=== PATIENT | female | born 1980 | race Caucasian/White ===

== ENCOUNTER 2016-12-05 15:12 | Emergency (ER) | payer BC, MEDICAID ==
[2016-12-05] MEDS ORDERED: SODIUM CHLORIDE 0.9% 1,000 ML IV STA (16:03)
--- NOTE | 2016-12-05 16:08 | ED ---
Syncope HPI - General Chief Complaint: Dizziness Stated Complaint: Near Syncope Time Seen by Provider: 12/05/16 15:56 Source: patient, RN notes reviewed, old records reviewed Mode of arrival: EMS - History of Present Illness Initial Comments: This is a 36-year-old female presenting to the emergency department with a near syncopal episode at work today. Patient reports that she is certainly feels somewhat lightheaded and walk towards the bathroom. Patient reports a coworker helped her and she will try to/100 face. Patient states that that time slipped to the floor. Patient states that she did not hit her head. Patient reports that she does have some right flank pain. Patient reports that she attributed her syncope to either low blood sugar or dehydration. Patient reports that she drinks a lot of coffee. She denies any difficulty urinating, hematuria, changes in bowel movements. She denies any abdominal pain. Patient reports that she had no shortness of breath, chest pain or diaphoresis during the episode. Patient reports she has a history of IBS and she tries to eat healthy. Surgical history includes tubal ligation. - Related Data Home Medications Medication Instructions Recorded Confirmed Methylphenidate HCl [Concerta] 18 mg PO DAILY 12/05/16 12/05/16 Allergies Allergy/AdvReac Type Severity Reaction Status Date / Time aspirin Allergy Anaphylaxis Verified 12/05/16 15:55 Review of Systems ROS Statement: Those systems with pertinent positive or pertinent negative responses have been documented in the HPI. ROS Other: All systems not noted in ROS Statement are negative. Past Medical History Past Medical History: No Reported History History of Any Multi-Drug Resistant Organisms: None Reported Past Surgical History: Breast Surgery, Tubal Ligation Additional Past Surgical History / Comment(s): Breast reduction 2002 Past Psychological History: No Psychological Hx Reported Smoking Status: Never smoker Past Alcohol Use History: None Reported Past Drug Use History: None Reported General Exam - General Exam Comments Initial Comments: Pleasant 36-year-old female. No acute distress. General appearance: alert, in no apparent distress Head exam: Present: atraumatic, normocephalic, normal inspection Eye exam: Present: normal appearance, PERRL, EOMI. Absent: scleral icterus, conjunctival injection, periorbital swelling ENT exam: Present: normal exam, mucous membranes moist Neck exam: Present: normal inspection. Absent: tenderness, meningismus, lymphadenopathy Respiratory exam: Present: normal lung sounds bilaterally. Absent: respiratory distress, wheezes, rales, rhonchi, stridor Cardiovascular Exam: Present: regular rate, normal rhythm, normal heart sounds. Absent: systolic murmur, diastolic murmur, rubs, gallop, clicks GI/Abdominal exam: Present: soft, normal bowel sounds. Absent: distended, tenderness, guarding, rebound, rigid Extremities exam: Present: normal inspection, full ROM, normal capillary refill. Absent: tenderness, pedal edema, joint swelling, calf tenderness Back exam: Present: normal inspection Neurological exam: Present: alert, oriented X3, CN II-XII intact Psychiatric exam: Present: normal affect, normal mood Skin exam: Present: warm, dry, intact, normal color. Absent: rash Course Vital Signs 12/05/16 12/05/16 12/05/16 15:15 16:37 17:15 Temperature 97.9 F 97.7 F 97.6 F Pulse Rate 92 77 73 Respiratory 20 18 18 Rate Blood Pressure 130/80 99/57 101/52 O2 Sat by Pulse 100 100 100 Oximetry Medical Decision Making - Medical Decision Making This is a 36-year-old female presenting to the emergency department with a near syncopal episode at work today. Patient reports that she is certainly feels somewhat lightheaded and walk towards the bathroom. Patient reports a coworker helped her and she will try to/100 face. Patient states that that time slipped to the floor. Patient states that she did not hit her head. Patient reports that she does have some right flank pain. Patient reports that she attributed her syncope to either low blood sugar or dehydration. Patient reports that she drinks a lot of coffee. She denies any difficulty urinating, hematuria, changes in bowel movements. She denies any abdominal pain. Patient reports that she had no shortness of breath, chest pain or diaphoresis during the episode. Patient reports she has a history of IBS and she tries to eat healthy. Surgical history includes tubal ligation. Patient's lab work was reviewed and negative for any significant acute process. EKG was reviewed and negative for any abnormalities. Chest x-ray was also normal KUB is normal. Urinalysis shows no signs of infection. Patient reports that she does feel much better after being hydrated. Patient has been advised to follow-up with her primary care provider. Patient understands treatment plan will comply. Return parameters were discussed. - Lab Data Result diagrams: 12/05/16 15:20 12/05/16 15:20 Lab Results 12/05/16 12/05/16 12/05/16 Range/Units 15:20 15:20 15:20 WBC 7.2 (3.8-10.6) k/uL RBC 4.35 (3.80-5.40) m/uL Hgb 13.4 (11.4-16.0) gm/dL Hct 39.0 (34.0-46.0) % MCV 89.7 (80.0-100.0) fL MCH 30.8 (25.0-35.0) pg MCHC 34.4 (31.0-37.0) g/dL RDW 13.1 (11.5-15.5) % Plt Count 302 (150-450) k/uL Neutrophils % 66 % Lymphocytes % 25 % Monocytes % 6 % Eosinophils % 1 % Basophils % 1 % Neutrophils # 4.7 (1.3-7.7) k/uL Lymphocytes # 1.8 (1.0-4.8) k/uL Monocytes # 0.4 (0-1.0) k/uL Eosinophils # 0.1 (0-0.7) k/uL Basophils # 0.0 (0-0.2) k/uL PT (9.0-12.0) sec INR (<1.1) APTT (22.0-30.0) sec D-Dimer (<0.60) mg/L FEU Sodium 141 (137-145) mmol/L Potassium 4.7 (3.5-5.1) mmol/L Chloride 106 (98-107) mmol/L Carbon Dioxide 24 (22-30) mmol/L Anion Gap 11 mmol/L BUN 12 (7-17) mg/dL Creatinine 0.87 (0.52-1.04) mg/dL Est GFR (MDRD) Af Amer >60 (>60 ml/min/1.73 sqM) Est GFR (MDRD) Non-Af >60 (>60 ml/min/1.73 sqM) Glucose 85 (74-99) mg/dL POC Glucose (mg/dL) (75-99) mg/dL POC Glu Band Ripsaw Operator ID Calcium 10.1 (8.4-10.2) mg/dL Magnesium 2.2 (1.6-2.3) mg/dL Total Bilirubin 0.6 (0.2-1.3) mg/dL AST 18 (14-36) U/L ALT 21 (9-52) U/L Alkaline Phosphatase 49 (38-126) U/L Total Creatine Kinase 111 (30-135) U/L CK-MB (CK-2) 0.8 (0.0-2.4) ng/mL CK-MB (CK-2) Rel Index 0.7 Troponin I <0.012 (0.000-0.034) ng/mL Total Protein 8.1 (6.3-8.2) g/dL Albumin 4.8 (3.5-5.0) g/dL Urine Color Urine Appearance (Clear) Urine pH (5.0-8.0) Ur Specific [place] (1.001-1.035) Urine Protein (Negative) Urine Glucose (UA) (Negative) Urine Ketones (Negative) Urine Blood (Negative) Urine Nitrite (Negative) Urine Bilirubin (Negative) Urine Urobilinogen (<2.0) mg/dL Ur Leukocyte Esterase (Negative) Urine HCG, Qual (Not Detectd) 12/05/16 12/05/16 12/05/16 Range/Units 15:20 15:20 15:20 WBC (3.8-10.6) k/uL RBC (3.80-5.40) m/uL Hgb (11.4-16.0) gm/dL Hct (34.0-46.0) % MCV (80.0-100.0) fL MCH (25.0-35.0) pg MCHC (31.0-37.0) g/dL RDW (11.5-15.5) % Plt Count (150-450) k/uL Neutrophils % % Lymphocytes % % Monocytes % % Eosinophils % % Basophils % % Neutrophils # (1.3-7.7) k/uL Lymphocytes # (1.0-4.8) k/uL Monocytes # (0-1.0) k/uL Eosinophils # (0-0.7) k/uL Basophils # (0-0.2) k/uL PT 10.2 (9.0-12.0) sec INR 1.0 (<1.1) APTT 24.9 (22.0-30.0) sec D-Dimer 0.33 (<0.60) mg/L FEU Sodium (137-145) mmol/L Potassium (3.5-5.1) mmol/L Chloride (98-107) mmol/L Carbon Dioxide (22-30) mmol/L Anion Gap mmol/L BUN (7-17) mg/dL Creatinine (0.52-1.04) mg/dL Est GFR (MDRD) Af Amer (>60 ml/min/1.73 sqM) Est GFR (MDRD) Non-Af (>60 ml/min/1.73 sqM) Glucose (74-99) mg/dL POC Glucose (mg/dL) (75-99) mg/dL POC Glu Band Ripsaw Operator ID Calcium (8.4-10.2) mg/dL Magnesium (1.6-2.3) mg/dL Total Bilirubin (0.2-1.3) mg/dL AST (14-36) U/L ALT (9-52) U/L Alkaline Phosphatase (38-126) U/L Total Creatine Kinase (30-135) U/L CK-MB (CK-2) (0.0-2.4) ng/mL CK-MB (CK-2) Rel Index Troponin I (0.000-0.034) ng/mL Total Protein (6.3-8.2) g/dL Albumin (3.5-5.0) g/dL Urine Color Colorless Urine Appearance Clear (Clear) Urine pH 7.0 (5.0-8.0) Ur Specific [place] 1.002 (1.001-1.035) Urine Protein Negative (Negative) Urine Glucose (UA) Negative (Negative) Urine Ketones Negative (Negative) Urine Blood Negative (Negative) Urine Nitrite Negative (Negative) Urine Bilirubin Negative (Negative) Urine Urobilinogen <2.0 (<2.0) mg/dL Ur Leukocyte Esterase Negative (Negative) Urine HCG, Qual Not Detected (Not Detectd) 12/05/16 Range/Units 16:41 WBC (3.8-10.6) k/uL RBC (3.80-5.40) m/uL Hgb (11.4-16.0) gm/dL Hct (34.0-46.0) % MCV (80.0-100.0) fL MCH (25.0-35.0) pg MCHC (31.0-37.0) g/dL RDW (11.5-15.5) % Plt Count (150-450) k/uL Neutrophils % % Lymphocytes % % Monocytes % % Eosinophils % % Basophils % % Neutrophils # (1.3-7.7) k/uL Lymphocytes # (1.0-4.8) k/uL Monocytes # (0-1.0) k/uL Eosinophils # (0-0.7) k/uL Basophils # (0-0.2) k/uL PT (9.0-12.0) sec INR (<1.1) APTT (22.0-30.0) sec D-Dimer (<0.60) mg/L FEU Sodium (137-145) mmol/L Potassium (3.5-5.1) mmol/L Chloride (98-107) mmol/L Carbon Dioxide (22-30) mmol/L Anion Gap mmol/L BUN (7-17) mg/dL Creatinine (0.52-1.04) mg/dL Est GFR (MDRD) Af Amer (>60 ml/min/1.73 sqM) Est GFR (MDRD) Non-Af (>60 ml/min/1.73 sqM) Glucose (74-99) mg/dL POC Glucose (mg/dL) 90 (75-99) mg/dL POC Glu Band Ripsaw Operator ID Chas Mcnulty Calcium (8.4-10.2) mg/dL Magnesium (1.6-2.3) mg/dL Total Bilirubin (0.2-1.3) mg/dL AST (14-36) U/L ALT (9-52) U/L Alkaline Phosphatase (38-126) U/L Total Creatine Kinase (30-135) U/L CK-MB (CK-2) (0.0-2.4) ng/mL CK-MB (CK-2) Rel Index Troponin I (0.000-0.034) ng/mL Total Protein (6.3-8.2) g/dL Albumin (3.5-5.0) g/dL Urine Color Urine Appearance (Clear) Urine pH (5.0-8.0) Ur Specific [place] (1.001-1.035) Urine Protein (Negative) Urine Glucose (UA) (Negative) Urine Ketones (Negative) Urine Blood (Negative) Urine Nitrite (Negative) Urine Bilirubin (Negative) Urine Urobilinogen (<2.0) mg/dL Ur Leukocyte Esterase (Negative) Urine HCG, Qual (Not Detectd) 12/05/16 16:23 EKG shows normal sinus rhythm, ventricular rate of 74 bpm. [place] interval 144 ms, QR anabaptism 74 ms, QT QTC is 372/412 ms. Normal axis deviation. No evidence of ST elevation or T-wave inversion. No evidence of atrial or ventricular arrhythmias. - Radiology Data Radiology results: report reviewed Chest x-ray shows no acute cardiopulmonary process. From objective bowel gas pattern. Metallic linear density [place] building ornament still present overlying the upper sacrum however some minimal position. No visceromegaly, pneumoperitoneum, abnormal constipation present. Disposition Clinical Impression: Near syncope Disposition: HOME SELF-CARE Condition: Good Instructions: Dizziness (ED) Additional Instructions: Advised to rest, increase fluids. Follow-up with your primary care provider within the next 1-2 days. Return to emergency department if any alarming signs or symptoms occur. Referrals: Mello Yoon MD [Primary Care Provider] - 1-2 days Time of Disposition: 17:18
[2016-12-05 16:22] LABS: Appearance,Urine Clear (Clear); Bilirubin,Urine Negative (Negative); Glucose,Urine (UA) Negative (Negative); Ketones,Urine Negative (Negative); Leukocyte Esterase,Urine Negative (Negative); Nitrite,Urine Negative (Negative); Protein,Urine Negative (Negative); Specific Gravity,Urine 1.002 (1.001-1.035); UA Billing (MACRO vs. MICRO) CHEM; Urobilinogen,Urine <2.0 mg/dL (<2.0)
[2016-12-05 16:24] LABS: Basophils % (A) 1 %; CH 30.7; CHCM 34.4; Eosinophils # (A) 0.1 k/uL (0-0.7); Eosinophils % (A) 1 %; HDW 2.36; HGB 13.4 gm/dL (11.4-16.0); Luc # (Auto) 0.13; Luc % (Auto) 2; Lymphocytes # (A) 1.8 k/uL (1.0-4.8); Lymphocytes % (A) 25 %; MCH 30.8 pg (25.0-35.0); MCHC 34.4 g/dL (31.0-37.0); MCV 89.7 fL (80.0-100.0); Mean Platelet Volume 8.5; Monocytes # (A) 0.4 k/uL (0-1.0); Monocytes % (A) 6 %; Neutrophils # (A) 4.7 k/uL (1.3-7.7); Neutrophils % (A) 66 %; RBC 4.35 m/uL (3.80-5.40); RDW 13.1 % (11.5-15.5); WBC 7.2 k/uL (3.8-10.6); WBC (Perox) 6.97
[2016-12-05 16:33] LABS: ALT 21 U/L (9-52); AST 18 U/L (14-36); Alkaline Phosphatase 49 U/L (38-126); Anion Gap 11 mmol/L; Blood Urea Nitrogen 12 mg/dL (7-17); Calcium 10.1 mg/dL (8.4-10.2); Carbon Dioxide 24 mmol/L (22-30); Chloride 106 mmol/L (98-107); Glucose 85 mg/dL (74-99); Magnesium 2.2 mg/dL (1.6-2.3); Non-African American GFR(MDRD) >60 (>60 ml/min/1.73 sqM); Potassium 4.7 mmol/L (3.5-5.1); Sodium 141 mmol/L (137-145); Total Bilirubin 0.6 mg/dL (0.2-1.3); Total Protein 8.1 g/dL (6.3-8.2)
[2016-12-05 16:37] LABS: Partial Thromboplastin Time 24.9 sec (22.0-30.0); Prothrombin Time 10.2 sec (9.0-12.0)
[2016-12-05 16:40] VITALS: RESP 18
[2016-12-05 16:40] LABS: Creatine Kinase 111 U/L (30-135)
[2016-12-05 16:44] LABS: Glucose,Whole Blood 90 mg/dL (75-99)
[2016-12-05 16:53] LABS: Creatine Kinase MB 0.8 ng/mL (0.0-2.4); Troponin I <0.012 ng/mL (0.000-0.034)
--- NOTE | 2016-12-05 16:53 | XR ---
EXAMINATION TYPE: XR chest 2V DATE OF EXAM: 12/05/2016 COMPARISON: NONE HISTORY: Syncope today. TECHNIQUE: Frontal and lateral views of the chest are obtained. FINDINGS: There is no focal air space opacity, pleural effusion, or pneumothorax seen. The cardiac silhouette size is within normal limits. The osseous structures are intact. IMPRESSION: No acute cardiopulmonary process.
--- NOTE | 2016-12-05 16:54 | XR ---
EXAMINATION TYPE: XR KUB DATE OF EXAM: 12/05/2016 4:50 PM CLINICAL HISTORY: Syncope today. TECHNIQUE: 2 upright KUB images of the abdomen are obtained. COMPARISON: None. FINDINGS: Scattered gas is seen in non-distended stomach and small bowel loops. Gas and fecal materia l is seen in non-distended colon. Metallic linear density favors umbilical ornament is felt present o verlying upper sacrum, somewhat low in position however. Correlate clinically. There is no visceromeg jacky, pneumoperitoneum, or abnormal calcification appreciated. The lung bases are clear and the osseou s structures are intact. IMPRESSION: Overall nonobstructive bowel gas pattern.
[2016-12-05 17:25] VITALS: BP 101/52; PULSE 73; TEMP 97.6
== END 2016-12-05 17:30 | disposition home or self-care (01) ==
LOC: EC 15:12
DX: R55 Syncope and collapse (principal); R10.9 Unspecified abdominal pain; Z79.899 Other long term (current) drug therapy; Z88.6 Allergy status to analgesic agent
CPT/HCPCS: 36415; 71020; 74000; 80053; 81003; 81025; 82550; 82553; 83735; 84484; 85025; 85379; 85610; 85730; 93005; 96360; 99285

== ENCOUNTER → 2017-01-01 | Outpatient (CLI) | payer MEDICAID ==
--- NOTE | 2017-01-01 16:51 | XR ---
Left ankle HISTORY: Pain, trauma weeks ago 2 views of the left ankle No comparisons There is soft tissue swelling present. Alignment, joint spaces are maintained. Bone mineralization is normal. IMPRESSION: Soft tissue swelling.
== END | disposition home or self-care (01) ==
LOC: RADXRMAIN 16:16
PROVIDERS: ATTEND Internal Medicine
DX: M79.89 Other specified soft tissue disorders (principal); R52 Pain, unspecified

== ENCOUNTER 2017-03-31 23:19 | Emergency (ER) | payer MEDICAID ==
--- NOTE | 2017-03-31 23:50 | ED ---
Chest Pain HPI - General Chief Complaint: Chest Pain Stated Complaint: Syncope/Palpitations Time Seen by Provider: 03/31/17 23:41 Source: patient Mode of arrival: wheelchair Limitations: no limitations - History of Present Illness Initial Comments: This patient is a 37-year-old woman who presents to be evaluate for substernal chest tightness that came on this evening. The patient states that it is mild, constant, and that she has not noted worsening or relieving factors. She denies associated symptoms. MD Complaint: chest pain -: hour(s) Onset: during rest Pain Location: substernal Severity: mild Quality: heaviness Consistency: constant Improves With: nothing Worsens With: nothing Other Symptoms: cough Treatments Prior to Arrival: none - Related Data Home Medications Medication Instructions Recorded Confirmed Phentermine HCl [Adipex-P] 18.75 mg PO QAM 03/31/17 03/31/17 Allergies Allergy/AdvReac Type Severity Reaction Status Date / Time aspirin Allergy Anaphylaxis Verified 03/31/17 23:44 Review of Systems ROS Statement: Those systems with pertinent positive or pertinent negative responses have been documented in the HPI. ROS Other: All systems not noted in ROS Statement are negative. EKG Findings - EKG Results: EKG: interpreted by SCOTT ROYAL, sinus rhythm (Rate 94 bpm), normal axis, normal QRS, normal ST/T, no acute changes - MO, Pacemaker, Normal: Normal tracing: normal tracing Past Medical History Past Medical History: No Reported History Additional Past Medical History / Comment(s): syncope. IBS. History of Any Multi-Drug Resistant Organisms: None Reported Past Surgical History: Breast Surgery, Tubal Ligation Additional Past Surgical History / Comment(s): Breast reduction 2002 Past Psychological History: No Psychological Hx Reported Smoking Status: Never smoker Past Alcohol Use History: None Reported Past Drug Use History: None Reported General Exam Limitations: no limitations Course Vital Signs 03/31/17 04/01/17 04/01/17 23:25 00:14 00:26 Temperature 98 F Pulse Rate 94 88 Pulse Rate [ 84 Sitting Pulse Oximetery] Pulse Rate [ 99 Standing Pulse Oximetery] Pulse Rate [ 84 Supine Pulse Oximetery] Respiratory 16 18 Rate Blood Pressure 104/66 102/56 Blood Pressure 102/61 [Left Arm Sitting] Blood Pressure 107/59 [Left Arm Standing] Blood Pressure 113/64 [Left Arm Supine] O2 Sat by Pulse 100 100 Oximetry 04/01/17 04/01/17 00:56 01:35 Temperature 98.3 F Pulse Rate 77 85 Pulse Rate [ Sitting Pulse Oximetery] Pulse Rate [ Standing Pulse Oximetery] Pulse Rate [ Supine Pulse Oximetery] Respiratory 18 18 Rate Blood Pressure 100/55 98/66 Blood Pressure [Left Arm Sitting] Blood Pressure [Left Arm Standing] Blood Pressure [Left Arm Supine] O2 Sat by Pulse 100 100 Oximetry Disposition Clinical Impression: Palpitations Disposition: HOME SELF-CARE Condition: Good Instructions: Palpitations (ED) Referrals: Mello Yoon MD [Primary Care Provider] - 1-2 days
[2017-03-31] MEDS ORDERED: SODIUM CHLORIDE 0.9% 500 ML IV STA (23:59)
--- NOTE | 2017-04-01 00:25 | XR ---
EXAMINATION TYPE: XR chest 2V DATE OF EXAM: 04/01/2017 COMPARISON: 12/05/2016 HISTORY: Chest pain TECHNIQUE: Frontal and lateral views of the chest are obtained. FINDINGS: Heart and mediastinum are normal. Lungs are clear. Diaphragm is normal. Bony thorax is nor mal. There are chest leads. IMPRESSION: Normal chest. No change.
[2017-04-01 00:29] LABS: ALT 27 U/L (9-52); AST 24 U/L (14-36); Alkaline Phosphatase 63 U/L (38-126); Anion Gap 12 mmol/L; Blood Urea Nitrogen 12 mg/dL (7-17); Calcium 9.9 mg/dL (8.4-10.2); Carbon Dioxide 21 mmol/L (22-30); Chloride 107 mmol/L (98-107); Glucose 80 mg/dL (74-99); Magnesium 2.3 mg/dL (1.6-2.3); Non-African American GFR(MDRD) >60 (>60 ml/min/1.73 sqM); Potassium 5.1 mmol/L (3.5-5.1); Sodium 140 mmol/L (137-145); Total Bilirubin 0.4 mg/dL (0.2-1.3); Total Protein 8.3 g/dL (6.3-8.2)
[2017-04-01 00:40] LABS: Basophils # (A) 0.1 k/uL (0-0.2); Basophils % (A) 1 %; CH 30.7; CHCM 33.7; Eosinophils # (A) 0.1 k/uL (0-0.7); Eosinophils % (A) 1 %; HCT 42.3 % (34.0-46.0); HDW 2.58; HGB 13.9 gm/dL (11.4-16.0); Luc # (Auto) 0.12; Luc % (Auto) 1; Lymphocytes # (A) 1.7 k/uL (1.0-4.8); Lymphocytes % (A) 21 %; MCH 30.1 pg (25.0-35.0); MCHC 32.9 g/dL (31.0-37.0); MCV 91.4 fL (80.0-100.0); Mean Platelet Volume 7.9; Monocytes # (A) 0.6 k/uL (0-1.0); Monocytes % (A) 7 %; Neutrophils # (A) 5.7 k/uL (1.3-7.7); Neutrophils % (A) 69 %; RBC 4.62 m/uL (3.80-5.40); RDW 12.2 % (11.5-15.5); WBC 8.2 k/uL (3.8-10.6); WBC (Perox) 8.37
[2017-04-01 00:50] LABS: Creatine Kinase 71 U/L (30-135)
[2017-04-01 01:04] LABS: Creatine Kinase MB 0.5 ng/mL (0.0-2.4); Troponin I <0.012 ng/mL (0.000-0.034)
[2017-04-01 01:15] VITALS: RESP 18
[2017-04-01 01:36] VITALS: BP 98/66; PULSE 85; TEMP 98.3
== END 2017-04-01 01:36 | disposition home or self-care (01) ==
LOC: EC 23:19
DX: R00.2 Palpitations (principal); R07.89 Other chest pain; R05 Cough; Z95.0 Presence of cardiac pacemaker; Z88.6 Allergy status to analgesic agent; Z79.899 Other long term (current) drug therapy
CPT/HCPCS: 36415; 71020; 80053; 82550; 82553; 83735; 84484; 85025; 85379; 93005; 96360; 99285

== ENCOUNTER → 2018-01-09 | Outpatient (CLI) | payer MEDICAID ==
[2018-01-09 14:16] LABS: HCT 39.4 % (34.0-46.0); HGB 13.3 gm/dL (11.4-16.0); MCH 30.4 pg (25.0-35.0); MCHC 33.7 g/dL (31.0-37.0); MCV 90.1 fL (80.0-100.0); Mean Platelet Volume 7.8; Platelet Count 313 k/uL (150-450); RBC 4.38 m/uL (3.80-5.40); RDW 12.7 % (11.5-15.5); WBC 6.4 k/uL (3.8-10.6)
[2018-01-09 14:29] LABS: Anion Gap 9 mmol/L; Blood Urea Nitrogen 11 mg/dL (7-17); Calcium 9.7 mg/dL (8.4-10.2); Carbon Dioxide 26 mmol/L (22-30); Chloride 106 mmol/L (98-107); Glucose 107 mg/dL (74-99); Potassium 4.3 mmol/L (3.5-5.1); Sodium 141 mmol/L (137-145)
== END | disposition home or self-care (01) ==
LOC: LABWHC1 13:54
PROVIDERS: ATTEND Internal Medicine
DX: M62.838 Other muscle spasm (principal)
CPT/HCPCS: 36415; 80048; 85027

== ENCOUNTER → 2018-09-03 | Outpatient (CLI) | payer MEDICAID ==
--- NOTE | 2018-09-03 11:51 | MM ---
Reason for exam: clinical finding. Last mammogram was performed 3 years and 6 months ago. History: Reductions of both breasts, 2001. Physical Findings: Nurse did not find any significant physical abnormalities on exam. MG Diagnostic Mammo w CAD SHANTE Bilateral CC and MLO view(s) were taken. Prior study comparison: March 03, 2015, bilateral MG screening mammo w CAD. August 11, 2007, CAD bilateral diagnostic mammogram. The breast tissue is heterogeneously dense. This may lower the sensitivity of mammography. There is no discrete abnormality. These results were verbally communicated with the patient and result sheet given to the patient on 09/03/18. ASSESSMENT: Incomplete: need additional imaging evaluation, BI-RAD 0 RECOMMENDATION: Ultrasound of the left breast. (palpable by doctor)
--- NOTE | 2018-09-03 11:52 | USB ---
Reason for exam: clinical finding. History: Reductions of both breasts, 2001. US Breast LT Left complete breast ultrasound includes all four quadrants, the retroareolar region and axilla. Finding demonstrates no cystic or solid lesion seen. These results were verbally communicated with the patient and result sheet given to the patient on 09/03/18. ASSESSMENT: Negative, BI-RAD 1 RECOMMENDATION: Routine screening mammogram of both breasts at age 40. Manage patient on a clinical basis.
== END ==
LOC: RADMAMWWP 09:42
PROVIDERS: ATTEND Obstetrics & Gynecology
DX: N63.20 Unspecified lump in the left breast, unspecified quadrant (principal); R92.8 Other abnormal and inconclusive findings on diagnostic imaging of breast
CPT/HCPCS: 77066

== ENCOUNTER → 2020-05-09 | Outpatient (CLI) | payer MEDICAID ==
[2020-05-09 11:12] LABS: Basophils # (A) 0.1 k/uL (0-0.2); Basophils % (A) 1 %; Eosinophils # (A) 0.1 k/uL (0-0.7); Eosinophils % (A) 2 %; HCT 41.2 % (34.0-46.0); HGB 13.9 gm/dL (11.4-16.0); Lymphocytes % (A) 29 %; MCH 30.8 pg (25.0-35.0); MCHC 33.6 g/dL (31.0-37.0); MCV 91.5 fL (80.0-100.0); Mean Platelet Volume 8.3; Monocytes # (A) 0.4 k/uL (0-1.0); Monocytes % (A) 6 %; Neutrophils # (A) 4.3 k/uL (1.3-7.7); Neutrophils % (A) 61 %; Platelet Count 281 k/uL (150-450); RDW 12.1 % (11.5-15.5)
== END | disposition home or self-care (01) ==
LOC: LABPAT 09:20
PROVIDERS: ATTEND Obstetrics & Gynecology
DX: Z01.818 Encounter for other preprocedural examination (principal)
CPT/HCPCS: 36415; 85025

== ENCOUNTER 2020-05-19 06:17 | Day surgery (SDC) | payer MEDICAID ==
[2020-05-15 12:04] VITALS: BMI 20.2
--- NOTE | 2020-05-17 13:16 | P.HPOB ---
History of Present Illness H&P Date: 05/17/20 Chief Complaint: DANA I This is a 40 y.o. female, 2, para 2, who presents for LEEP with colposcopy due to DANA I. She has been treated for DANA 3 in the past and wishes to proceed the stated procedure. She has previously been treated with cold knife conization in 2004. Her last colposcopy was performed on 04/26/2020 due to normal pap with +high risk HPV. Biopsies did show low grade squamous intraepithelial lesion including endocervical curettage. OB Hx: . History of 2 vaginal deliveries. Tint Layer Hx: Hx HPV Social Hx: . 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 Review of Systems Constitutional: Denies chills, Denies fever Eyes: denies blurred vision, denies pain Ears, nose, mouth and throat: Denies headache, Denies sore throat Respiratory: Denies cough Gastrointestinal: Denies abdominal pain, Denies diarrhea, Denies nausea, Denies vomiting Genitourinary: Denies dysuria, Denies hematuria Menstruation: Reports menses variable Musculoskeletal: Reports low back pain, Denies myalgias Integumentary: Denies pruritus, Denies rash Neurological: Denies numbness, Denies weakness Psychiatric: Reports anxiety, Reports depression Past Medical History Additional Past Medical History / Comment(s): syncope.,IBS. History of Any Multi-Drug Resistant Organisms: None Reported Past Surgical History: Breast Surgery, Tubal Ligation Additional Past Surgical History / Comment(s): Breast reduction 2001, colonoscopy, [facility] biopsy. Past Anesthesia/Blood Transfusion Reactions: No Reported Reaction Past Psychological History: Anxiety, Depression Smoking Status: Never smoker Past Alcohol Use History: Occasional Past Drug Use History: None Reported - Past Family History Mother Family Medical History: Cancer Additional Family Medical History / Comment(s): Stage 4 cervical cancer. Medications and Allergies Home Medications Medication Instructions Recorded Confirmed Type Phentermine HCl [Adipex-P] 18.75 mg PO QAM 03/31/17 05/15/20 History Multivitamins, Thera [Multivitamin 1 tab PO DAILY 05/15/20 05/15/20 History (formulary)] Allergies Allergy/AdvReac Type Severity Reaction Status Date / Time aspirin Allergy Anaphylaxis Verified 05/19/20 06:38 Exam Osteopathic Statement: *. No significant issues noted on an osteopathic structural exam other than those noted in the History and Physical/Consult. HEENT: within normal limits Heart: regular rate and rhythm Lungs: clear to auscultation bilaterally Abdomen: soft, non-tender Pelvic: uterus retroverted, non-tender, no adnexal masses or tenderness Extremities: neg. Yue's Assessment and Plan (1) DANA I (cervical intraepithelial neoplasia I) Current Visit: No Status: Acute Code(s): N87.0 - MILD CERVICAL DYSPLASIA SNOMED Code(s): 587035491 Plan: Proceed with loop electrocautery excision procedure with colposcopy. I have discussed the risks, benefits, and alternative therapies for the above- mentioned procedure and for both sedation/anesthesia as well as necessary blood products administration, if indicated, as they pertain to this patient. The patient has indicated her understanding and acceptance of the risks and procedures discussed.
[~2020-05-19 06:17] MED LIST: DEXAMETHASONE SOD PHOSPHATE 4 MG/ML 1 ML VIAL IV ONE; HYDROmorphone 0.5 MG/0.5 ML SYRINGE IVP PRN; LACTATED RINGERS 1,000 ML IV SCH; LIDOCAINE 1% (10MG/ML) FOR IV START INTRADERMA PRN; MIDAZOLAM 2 MG/2 ML VIAL IV PRN; ONDANSETRON 4 MG/2 ML VIAL IVP ONE; Pre Op ABX Message 1 EACH MISC MISCELLANE ONE
[2020-05-19] MEDS ORDERED: SCOPOLAMINE 1.5MG/72HR PATCH TRANSDERM ONE (07:00)
[2020-05-19] MEDS ORDERED: fentaNYL (PF) 50 MCG/ML 2 ML AMP ONE (07:27)
[2020-05-19] MEDS ORDERED: PROPOFOL 10 MG/ML 20 ML VIAL IV ONE (07:27)
[2020-05-19] MEDS ORDERED: LIDOCAINE 1% INJ 10MG/ML (20 ML MDV) ONE (07:27)
[2020-05-19] MEDS ORDERED: MIDAZOLAM 2 MG/2 ML VIAL ONE (07:27)
[2020-05-19] MEDS ORDERED: LIDOCAINE 1%-EPI 1:100,000 20 ML VIAL SUBMUCOSAL ONE ×2 (07:42→07:45)
[2020-05-19] MEDS ORDERED: BUPIVACAINE (PF) 0.5% 30 ML VIAL MISCELLANE ONE ×2 (07:43→07:45)
[2020-05-19] MEDS ORDERED: FERRIC SUBSULFATE (MONSELS) JAR TOPICAL ONE ×2 (07:46→07:52)
[2020-05-19] MEDS ORDERED: IODINE/POTASS IOD (LUGOLS) BOTTLE TOPICAL ONE (07:46)
[2020-05-19] MEDS ORDERED: ACETIC ACID 15 DROPS/ML DROPS MISCELLANE ONE (07:46)
--- NOTE | 2020-05-19 07:58 | P.OP ---
Date of Procedure: 05/19/20 Preoperative Diagnosis: DANA-1 Postoperative Diagnosis: Cervical dysplasia Procedure(s) Performed: Colposcopy with loop electrocautery excision procedure Anesthesia: HERMELINDAA Surgeon: Vivian Tineo Estimated Blood Loss (ml): 10 Pathology: other (Ectocervix with 12 o'clock position marked with a stitch and a separate piece is endocervix) Condition: stable Disposition: same day Indications for Procedure: This is a 40 y.o. female, 2, para 2, who presents for LEEP with colposco py due to DANA I. She has been treated for DANA 3 in the past and wishes to proceed the stated procedure. She has previously been treated with cold knife conization in 2004. Her last colposcopy was performed on 04/26/2020 due to normal pap with +high risk HPV. Biopsies did show low grade squamous intraepithelial lesion including endocervical curettage. Operative Findings: No visible abnormalities are seen with either acetic acid or Lugol solution. Cervix is nulliparous appearing. Description of Procedure: The patient is taken to the operating room where she is placed in the dorsal lithotomy position. She is prepped and the normal sterile fashion. Bladder is drained with a catheter. A coated bivalve speculum is placed in the patient's vagina. Cervix is visualized with the colposcope. Cervix is swabbed with 5% acetic acid. No abnormalities are visualized. Next the cervix is swabbed with Lugol solution. Again no abnormalities are visualized. Next the cervix was circumferentially injected with a 50-50 mixture of 1% lidocaine with epinephrine and half percent Marcaine. Approximately 5 mL were used. Next a large loop was used with 35+ of cutting power to swipe from left to right and moving the entire transition zone. Next a small loop was used to remove the endocervix. Ball- tipped cautery was used to cauterize the bed left behind. Monsel solution is applied for hemostasis. Speculum is removed from the vagina. A stitches placed at the 12 o'clock position on the ectocervix. No stitches placed on the endocervical piece. Specimens are sent to pathology. Excellent hemostasis is noted. All sponge and needle counts are correct. All instruments are correct.
[2020-05-19 08:14] VITALS: TEMP 97.3
[2020-05-19] MEDS ORDERED: KETOROLAC 15 MG/ML 1 ML VIAL IVP ONE (08:25)
[2020-05-19 08:49] VITALS: RESP 16
[2020-05-19 09:09] VITALS: BP 102/66; PULSE 67
== END 2020-05-19 09:16 | disposition home or self-care (01) ==
LOC: OR 06:17
PROVIDERS: ATTEND Obstetrics & Gynecology
DX: N87.0 Mild cervical dysplasia (principal); K58.9 Irritable bowel syndrome, unspecified; F41.9 Anxiety disorder, unspecified; F32.9 Major depressive disorder, single episode, unspecified; Z88.6 Allergy status to analgesic agent; Z98.51 Tubal ligation status; Z98.890 Other specified postprocedural states; Z79.899 Other long term (current) drug therapy; Z80.49 Family history of malignant neoplasm of other genital organs; Z86.001 Personal history of in-situ neoplasm of cervix uteri
CPT/HCPCS: 81025; 88307; 57460; J2250; J1100; J2405; J2001; J3010; J1885; J2704

== ENCOUNTER → 2020-11-07 | Outpatient (CLI) | payer MEDICAID ==
--- NOTE | 2020-11-07 12:27 | MM ---
Reason for exam: screening (asymptomatic). Last mammogram was performed 2 years and 2 months ago. History: Reductions of both breasts, 2002. Physical Findings: A clinical breast exam by your physician is recommended on an annual basis and results should be correlated with mammographic findings. MG 3D Screening Mammo W/Cad Bilateral CC and MLO view(s) were taken. XCCL view(s) were taken of the left breast. Prior study comparison: September 03, 2018, bilateral MG diagnostic mammo w CAD SHANTE. March 03, 2015, bilateral MG screening mammo w CAD. There is no discrete abnormality. ASSESSMENT: Negative, BI-RAD 1 RECOMMENDATION: Routine screening mammogram of both breasts in 1 year.
== END | disposition home or self-care (01) ==
LOC: RADMAMWWP 09:25
PROVIDERS: ATTEND Obstetrics & Gynecology
DX: Z12.31 Encounter for screening mammogram for malignant neoplasm of breast (principal)
CPT/HCPCS: 77063; 77067

== ENCOUNTER 2021-02-21 00:22 | Emergency (ER) | payer MEDICAID ==
[2021-02-21 00:27] VITALS: RESP 18; TEMP 98.1
[2021-02-21] MEDS ORDERED: FLUORESCEIN STRIPS 1 MG STRIP RIGHT EYE ONE (00:29)
[2021-02-21] MEDS ORDERED: PROPARACAINE 0.5% OPHTH DROPS 15 ML BTL RIGHT EYE STA (00:29)
[2021-02-21] MEDS ORDERED: TOBRAMYCIN 0.3% OPHTH DROPS 5 ML BTL RIGHT EYE STA (00:50)
--- NOTE | 2021-02-21 00:52 | ED ---
Eye Problem HPI - General Chief complaint: Eye Problems Stated complaint: Eye Problems Time Seen by Provider: 02/21/21 00:28 Source: patient, RN notes reviewed Mode of arrival: ambulatory Limitations: no limitations - History of Present Illness Initial comments: This a 40-year-old female presents emergency Department chief complaint right eye foreign body. Patient states she had a sharp like something was in her eyes she attempted to flush multiple times still feels irritated feels like there something in her right eye she is up-to-date on her tetanus no blurred vision no contacts states that she does wear glasses no other complaints. - Related Data Home Medications Medication Instructions Recorded Confirmed Phentermine HCl [Adipex-P] 18.75 mg PO QAM 03/31/17 05/15/20 Multivitamins, Thera [Multivitamin 1 tab PO DAILY 05/15/20 05/15/20 (formulary)] Allergies Allergy/AdvReac Type Severity Reaction Status Date / Time aspirin Allergy Anaphylaxis Verified 02/21/21 00:26 Review of Systems ROS Statement: Those systems with pertinent positive or pertinent negative responses have been documented in the HPI. ROS Other: All systems not noted in ROS Statement are negative. Past Medical History Past Medical History: No Reported History Additional Past Medical History / Comment(s): syncope.,IBS. History of Any Multi-Drug Resistant Organisms: None Reported Past Surgical History: Breast Surgery, Tubal Ligation Additional Past Surgical History / Comment(s): Breast reduction 2001, colonoscopy, Cone biopsy. Past Anesthesia/Blood Transfusion Reactions: No Reported Reaction Past Psychological History: Anxiety, Depression Smoking Status: Never smoker Past Alcohol Use History: Occasional Past Drug Use History: None Reported - Past Family History Mother Family Medical History: Cancer Additional Family Medical History / Comment(s): Stage 4 cervical cancer. General Exam Limitations: no limitations General appearance: alert, in no apparent distress Head exam: Present: atraumatic, normocephalic, normal inspection Eye exam: Present: normal appearance, PERRL, EOMI, conjunctival injection (Mild right), other (Patient complete relief of symptoms with proparacaine eye drops, fluorescein uptake with with lymph node in the 7 o'clock position no foreign body evident). Absent: scleral icterus, periorbital swelling ENT exam: Present: normal exam, mucous membranes moist Neck exam: Present: normal inspection. Absent: tenderness, meningismus, lymphadenopathy Respiratory exam: Present: normal lung sounds bilaterally. Absent: respiratory distress, wheezes, rales, rhonchi, stridor Cardiovascular Exam: Present: regular rate, normal rhythm, normal heart sounds. Absent: systolic murmur, diastolic murmur, rubs, gallop, clicks Course Vital Signs 02/21/21 00:24 Temperature 98.1 F Pulse Rate 83 Respiratory 18 Rate Blood Pressure 105/74 O2 Sat by Pulse 100 Oximetry Medical Decision Making - Medical Decision Making Patient is a small corneal abrasion will be started on Tobrex eyedrops tetanus is up-to-date. Patient will follow-up with ophthalmology if no relief return parameters discussed. Disposition Clinical Impression: Corneal abrasion, right Disposition: HOME SELF-CARE Condition: Stable Instructions (If sedation given, give patient instructions): Corneal Abrasion (ED) Additional Instructions: Please return to the Emergency Department if symptoms worsen or any other concerns. Use Tobrex eyedrops 1 drop every 4 hours while awake for the next 5 days. Is patient prescribed a controlled substance at d/c from ED?: No Referrals: Mello Yoon MD [Primary Care Provider] - 1-2 days Baron Orellana MD [STAFF PHYSICIAN] - 1-2 days Time of Disposition: 00:51
[2021-02-21 01:30] VITALS: BP 97/72; PULSE 74
== END 2021-02-21 01:28 | disposition home or self-care (01) ==
LOC: EC 00:22
DX: S05.01XA Injury of conjunctiva and corneal abrasion without foreign body, right eye, initial encounter (principal); F41.9 Anxiety disorder, unspecified; F32.9 Major depressive disorder, single episode, unspecified; Z88.5 Allergy status to narcotic agent; Z98.51 Tubal ligation status; X58.XXXA Exposure to other specified factors, initial encounter
CPT/HCPCS: 99283

== ENCOUNTER → 2021-07-17 | Outpatient (CLI) | payer MEDICAID ==
[2021-07-17 23:58] LABS: Basophils # (A) 0.07 X 10*3/uL (0.00-0.10); Eosinophils # (A) 0.12 X 10*3/uL (0.04-0.35); Eosinophils % (A) 1.7 %; HCT 38.4 % (37.2-46.3); HGB 12.4 g/dL (12.0-15.0); MCH 30.2 pg (27.0-32.0); MCHC 32.3 g/dL (32.0-37.0); MCV 93.7 fL (80.0-97.0); Mean Platelet Volume 11.5 fL (9.5-12.2); Monocytes # (A) 0.48 X 10*3/uL (0.20-1.00); Monocytes % (A) 6.7 %; Neutrophils # (A) 4.73 X 10*3/uL (1.80-7.70); Neutrophils % (A) 65.5 %; Platelet Count 347 X 10*3/uL (140-440); RDW 12.6 % (11.5-14.5); WBC 7.21 X 10*3/uL (4.50-10.00)
[2021-07-18 01:41] LABS: ALT 14 U/L (8-44); AST 15 U/L (13-35); African American GFR (CKD) 106.1 (60.0-200.0); Albumin 4.5 g/dL (3.8-4.9); Alkaline Phosphatase 50 U/L (41-126); BUN/Creat Ratio 13.63 Ratio (12.00-20.00); Blood Urea Nitrogen 10.9 mg/dL (9.0-27.0); Calcium 9.2 mg/dL (8.7-10.3); Carbon Dioxide 23.9 mmol/L (20.0-27.5); Chloride 105 mmol/L (96-109); Globulin 2.5 g/dL (1.6-3.3); Glucose 92 mg/dL (70-110); Non-African American GFR(CKD) 91.6 (60.0-200.0); Potassium 4.2 mmol/L (3.5-5.5); Sodium 141 mmol/L (135-145); Total Bilirubin <0.20 mg/dL (0.30-1.20)
[2021-07-18 03:50] LABS: Iron 84 ug/dL (50-170)
== END | disposition home or self-care (01) ==
LOC: LABWHC1 15:06
PROVIDERS: ATTEND Internal Medicine
DX: R53.82 Chronic fatigue, unspecified (principal)
CPT/HCPCS: 36415; 80053; 82607; 83540; 84439; 84443; 85025

== ENCOUNTER → 2021-08-10 | Outpatient (CLI) | payer MEDICAID ==
--- NOTE | 2021-08-10 14:40 | US ---
EXAMINATION TYPE: US pelvic complete DATE OF EXAM: 08/10/2021 COMPARISON: NONE CLINICAL HISTORY: R10.2 PELVIC PAIN. pelvic pain TECHNIQUE: Transabdominal (TA). Date of LMP: 07/15/21 EXAM MEASUREMENTS: Uterus: 7.3 x 4.6 x 6.1 cm Endometrial Stripe: 1.4 cm Right Ovary: 3.1 x 1.7 x 2.8 cm Left Ovary: 2.9 x 1.5 x 1.7 cm 1. Uterus: Retroverted 2. Endometrium: small amount of fluid within 3. Right Ovary: complex area = 1.9 x 1.5 x 1.6cm 4. Left Ovary: wnl 5. Bilateral Adnexa: wnl 6. Posterior cul-de-sac: small amount of free fluid IMPRESSION: 1. Complex right ovarian lesion may reflect a hemorrhagic cyst. Consider follow-up study in 6 weeks. 2. Small amount of endometrial fluid identified.
== END | disposition home or self-care (01) ==
LOC: RADUSWWP 13:44
PROVIDERS: ATTEND Obstetrics & Gynecology
DX: N83.8 Other noninflammatory disorders of ovary, fallopian tube and broad ligament (principal)
CPT/HCPCS: 76856

== ENCOUNTER → 2021-09-11 | Outpatient (CLI) | payer MEDICAID ==
[2021-09-11 14:19] LABS: Basophils # (A) 0.06 X 10*3/uL (0.00-0.10); Eosinophils # (A) 0.11 X 10*3/uL (0.04-0.35); Eosinophils % (A) 1.8 %; HCT 41.3 % (37.2-46.3); HGB 13.7 g/dL (12.0-15.0); Immature Grans, Automated 0.3 %; Lymphocytes # (A) 1.56 X 10*3/uL (0.90-5.00); Lymphocytes % (A) 25.7 %; MCH 30.4 pg (27.0-32.0); MCHC 33.2 g/dL (32.0-37.0); MCV 91.8 fL (80.0-97.0); Mean Platelet Volume 11.9 fL (9.5-12.2); Monocytes # (A) 0.52 X 10*3/uL (0.20-1.00); Monocytes % (A) 8.6 %; NRBC Per 100 WBC 0 /100 WBCS (0.0-0.0); Neutrophils # (A) 3.79 X 10*3/uL (1.80-7.70); Neutrophils % (A) 62.6 %; Platelet Count 327 X 10*3/uL (140-440); RDW 12.8 % (11.5-14.5); WBC 6.06 X 10*3/uL (4.50-10.00)
[2021-09-11 14:36] LABS: African American GFR (CKD) 106.1 (60.0-200.0); Anion Gap 10.1 mmol/L (10.00-18.00); BUN/Creat Ratio 15.63 Ratio (12.00-20.00); Blood Urea Nitrogen 12.5 mg/dL (9.0-27.0); Calcium 9.7 mg/dL (8.7-10.3); Carbon Dioxide 24.9 mmol/L (20.0-27.5); Non-African American GFR(CKD) 91.6 (60.0-200.0); Potassium 4.3 mmol/L (3.5-5.5)
== END | disposition home or self-care (01) ==
LOC: LABPAT 10:40
PROVIDERS: ATTEND Obstetrics & Gynecology
DX: Z01.812 Encounter for preprocedural laboratory examination (principal)
CPT/HCPCS: 36415; 80048; 85025

== ENCOUNTER 2021-09-19 05:48 | Day surgery (SDC) | payer MEDICAID ==
[2021-09-11 17:16] VITALS: BMI 19.7
--- NOTE | 2021-09-18 17:12 | P.HPOB ---
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 female, 2, para 2, who presents for total vaginal hysterectomy, possible total abdominal hysterectomy with bilateral salpingooophorectomy, due to persistent cervical high risk HPV despite previous cold knife cone and loop electrocautery excision procedure. She is uncomfortable with continuing to follow this since her mother had cervical cancer. Her original abnormal pap smear was 07/2003 and was HGSIL. 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 She had a cold knife cone 06/2004. Pap 03/2020 was normal, but positive for high risk HPV with types 16 & 18 negative. She had another colposcopy that showed DANA I. LEEP in 04/2020 showed low grade up to ectocervical margin. Patient is aware that she may still have high risk HPV present even if she has a hysterectomy. OB Hx: . History of 2 vaginal deliveries. 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 Previous tubal ligation. Social Hx: , but still involved with ex-. 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 Review of Systems Constitutional: Reports fatigue, Denies chills, Denies fever Eyes: denies blurred vision, denies pain Ears, nose, mouth and throat: Denies headache, Denies sore throat Cardiovascular: Denies chest pain, Denies shortness of breath Respiratory: Denies cough Gastrointestinal: Denies abdominal pain, Denies diarrhea, Denies nausea, Denies vomiting Genitourinary: Denies dysuria, Denies hematuria Menstruation: Reports menses variable Musculoskeletal: Reports low back pain Integumentary: Denies pruritus, Denies rash Neurological: Denies numbness, Denies weakness Psychiatric: Reports anxiety, Reports depression, Reports difficulty concentrating Endocrine: Reports fatigue Past Medical History Additional Past Medical History / Comment(s): syncope.,IBS. RECURRING ABN CELLS, HPV. PSORIASIS IN EARS. CHRONIC PELVIC PAIN. CHRONIC FATIGUE SYNDROME History of Any Multi-Drug Resistant Organisms: None Reported Past Surgical History: Breast Surgery, Tubal Ligation Additional Past Surgical History / Comment(s): Breast reduction 2001, colonoscopy, Cone biopsy. LEEP, Past Anesthesia/Blood Transfusion Reactions: No Reported Reaction Past Psychological History: Anxiety, Depression Smoking Status: Never smoker Past Alcohol Use History: Occasional Past Drug Use History: None Reported - Past Family History Mother Family Medical History: Cancer Additional Family Medical History / Comment(s): Stage 4 cervical cancer. Medications and Allergies Home Medications Medication Instructions Recorded Confirmed Type Betamethasone Dipropionate 1 applic TOPICAL DAILY 09/12/21 09/19/21 History [Diprolene 0.05% Ointment] Vitamin C/Biotin [Hair, Skin and 1 tab PO DAILY 09/12/21 09/19/21 History Nails Chew] buPROPion [Wellbutrin] 100 mg PO BID 09/12/21 09/19/21 History Allergies Allergy/AdvReac Type Severity Reaction Status Date / Time aspirin Allergy Anaphylaxis Verified 09/19/21 06:21 Exam Osteopathic Statement: *. No significant issues noted on an osteopathic structural exam other than those noted in the History and Physical/Consult. HEENT: within normal limits Heart: regular rate and rhythm Lungs: clear to auscultation bilaterally Abdomen: soft, non-tender Pelvic: uterus retroverted with 1st degree uterine prolapse, no adnexal masses or tenderness Extremities: negative Yue's Assessment and Plan (1) Cervical high risk human papillomavirus (HPV) DNA test positive Current Visit: No Status: Acute Code(s): R87.810 - CERVICAL HIGH RISK HPV DNA TEST POSITIVE SNOMED Code(s): 720861516 Plan: Proceed with total vaginal hysterectomy, possible total abdominal hysterectomy with bilateral salpingooophorectomy. I have discussed the risks, benefits, and alternative therapies for the above- mentioned procedure and for both sedation/anesthesia as well as necessary blood products administration, if indicated, as they pertain to this patient. The patient has indicated her understanding and acceptance of the risks and procedures discussed.
[2021-09-19] MEDS: LACTATED RINGERS 1,000 ML IV SCH ×4 (06:39→19:51)
[2021-09-19] MEDS: ONDANSETRON 4 MG/2 ML VIAL IVP ONE ×2 (06:48→10:13)
[2021-09-19] MEDS: DEXAMETHASONE SOD PHOSPHATE 4 MG/ML 1 ML VIAL IV ONE ×2 (06:48→10:13)
[2021-09-19] MEDS ORDERED: HYDROmorphone 0.5 MG/0.5 ML SYRINGE IVP PRN (07:00)
[2021-09-19] MEDS ORDERED: fentaNYL (PF) 50 MCG/ML 2 ML AMP IVP ONE (07:00)
[2021-09-19] MEDS ORDERED: MIDAZOLAM 2 MG/2 ML VIAL IVP ONE (07:00)
[2021-09-19] MEDS ORDERED: GLYCOPYRROLATE 0.2 MG/ML 2 ML VIAL ONE (07:25)
[2021-09-19] MEDS ORDERED: NEOSTIGMINE 1 MG/ML 10 ML VIAL ONE (07:25)
[2021-09-19] MEDS ORDERED: LIDOCAINE 1% INJ 10MG/ML (20 ML MDV) ONE (07:25)
[2021-09-19] MEDS ORDERED: MIDAZOLAM 2 MG/2 ML VIAL ONE (07:25)
[2021-09-19] MEDS ORDERED: MORPHINE SULFATE (PF) 0.3 MG/0.3 ML SYR ONE (07:25)
[2021-09-19] MEDS ORDERED: PROPOFOL 10 MG/ML 20 ML VIAL IV ONE (07:25)
[2021-09-19] MEDS ORDERED: PHENYLEPHRINE-0.9% NACL SYG 1,000 MCG/10 ML SYRINGE ONE (07:25)
[2021-09-19] MEDS ORDERED: fentaNYL (PF) 50 MCG/ML 2 ML AMP ONE (07:25)
[2021-09-19] MEDS ORDERED: ROCURONIUM 10 MG/ML (5 ML VIAL) IV ONE (07:25)
[2021-09-19] MEDS ORDERED: SUCCINYLCHOLINE CHLORIDE 100 MG/5 ML SYR IV ONE (07:25)
--- NOTE | 2021-09-19 07:58 | P.ANPRN ---
Procedure Note - Anesthesia - Epidural/Spinal Spinal Time Out Performed: Yes Date of Procedure: 09/19/21 Procedure Start Time: 06:59 Procedure Stop Time: 07:06 Location of Patient: PreOp Indication: Acute Post-Operative Pain, Requested by Surgeon Sedation Type: Sedate with meaningful contact maintained Preparation: Sterile Prep Position: Sitting Catheter: None Needle Guage: 25 (Lam) Narrative: After the informed consent was obtained and all the questions answered, Patient was positioned in sitting posture. The back was cleaned and draped after palpating the L3-L4 interspace. 3 mL of 1% lidocaine infiltrated into the aforementioned space. A 25-gauge Whittacre needle was introduced into the space and a clear flow of CSF was obtained. No blood was aspirated. 300 g of Duramorph and 25 g fentanyl drawn up with a Filter Needle and injected into the spinal space under aseptic precautions. Needle was withdrawn and the puncture ruth ann with a platelet dressed with Band-Aid. Patient tolerated the procedure very well with no apparent complications noted. Blood Aspirated: No Pain Paresthesia on Injection Noted: No Events: Uneventful and Well Tolerated
--- NOTE | 2021-09-19 08:30 | P.OP ---
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 female, 2, para 2, who presents for total vaginal hysterectomy, possible total abdominal hysterectomy with bilateral salpingooophorectomy, due to persistent cervical high risk HPV despite previous cold knife cone and loop electrocautery excision procedure. She is unco mfortable with continuing to follow this since her mother had cervical cancer. Her original abnormal pap smear was 07/2003 and was HGSIL. 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 She had a cold knife cone 06/2004. Pap 03/2020 was normal, but positive for high risk HPV with types 16 & 18 negative. She had another colposcopy that showed DANA I. LEEP in 04/2020 showed low grade up to ectocervical margin. Patient is aware that she may still have high risk HPV present even if she has a hysterectomy. Operative Findings: Grade 1 uterine prolapse is noted. Uterus is retroverted with no adnexal masses palpated. Both ovaries and tubes are visualized and appeared normal. Description of Procedure: The patient is taken the operating room where she is placed in the dorsal lithotomy position. She is prepped and draped in the normal sterile fashion. Next a weighted speculum was placed in the patient's vagina and a right angle retractor was used to visualize the cervix. The anterior lip of the cervix is grasped with a single-tooth tenaculum. Next the cervix was circumferentially injected with one amp of epinephrine to 150 mL of normal saline. Next the cervix was circumscribed with a scalpel. The vaginal mucosa was pushed away from the cervix with a sponge. Next the uterosacral ligaments are clamped on either side with a Ted clamp, cut with Herzog scissors, and then sutured with 0 Vicryl suture in a Ted transfixion stitch and then held on either side with a straight hemostat. Next the posterior peritoneal reflection was identified and entered sharply with Herzog scissors. The edges of the vaginal mucosa was then tagged with 0 Vicryl suture and held with a curved hemostat for identification. Next a longbilled weighted speculum was placed through the posterior peritoneal reflection. Next the cardinal ligaments were clamped on either side with Ted clamps, cut with Herzog scissors, and then sutured with 0 Vicryl suture in Ted transfixion stitches and cut. Next the vesicouterine peritoneum reflection is identified and entered sharply with Metzenbaum scissors. A right angle bladder retractor is then used to retract the bladder. The uterine arteries are clamped on either side with Ted clamps, cut with Herzog scissors, and then sutured with 0 Vicryl suture in Ted transfixion stitches. The round ligament is also clamped on either side with a Ted clamp, cut with Herzog scissors, and sutured with 0 Vicryl suture in Ted transfixion stitches. Next the uterine ovarian ligament and tube were clamped on either side with a Ted clamp, cut with Herzog scissors, and then sutured with 0 Vicryl suture in a [id number] stitch, flashed, and then free tied with another suture of 0 Vicryl suture. These pedicles were held with a straight Jackie for identification. The uterus is removed from the field. Good hemostasis is noted. Next the peritoneum is closed with 0 Vicryl suture in a pursestring fashion incorporating all the held ligaments. Both ovaries are visualized and appear normal. Both tubes appeared normal. Next the uterine ovarian ligaments are tied together in the middle and cut. Next the vaginal cuff is sutured with 0 Vicryl suture in a running locked fashion. The uterosacral ligaments were also tied together in the midline prior to completely closing the vaginal cuff. Excellent hemostasis is noted. The Salazar catheter is inserted and clear urine is noted. Next the vagina is packed with one-inch iodoform gauze with bacitracin ointment. All sponge and needle counts are correct and the patient is then taken to recovery room in stable condition.
[2021-09-19] MEDS ORDERED: LACTATED RINGERS 1,000 ML IV ONE (08:36)
[2021-09-19 09:37] VITALS: RESP 16
[2021-09-19] MEDS ORDERED: NALOXONE 0.4 MG/ML 1 ML VIAL IV PRN (09:38)
[2021-09-19] MEDS ORDERED: diphenhydrAMINE 50 MG/ML 1 ML VIAL IVP PRN ×2 (09:38→10:07)
[2021-09-19] MEDS ORDERED: NALBUPHINE 10 MG/ML (1 ML AMP) IV PRN (09:38)
[2021-09-19] MEDS ORDERED: MORPHINE SULFATE 2 MG/ML SYRINGE IVP PRN (09:38)
[2021-09-19] MEDS ORDERED: ONDANSETRON 4 MG/2 ML VIAL IVP PRN (10:07)
[2021-09-19] MEDS ORDERED: IBUPROFEN 600 MG TAB PO PRN (10:07)
[2021-09-19] MEDS ORDERED: KETOROLAC 15 MG/ML 1 ML VIAL IVP PRN (10:07)
[2021-09-19] MEDS ORDERED: ZOLPIDEM 5 MG TAB PO PRN (10:07)
[2021-09-19] MEDS ORDERED: METOCLOPRAMIDE 5 MG/ML 2 ML VIAL IVP PRN (10:07)
[2021-09-19] MEDS ORDERED: SIMETHICONE 80 MG CHEWABLE PO PRN (10:07)
[2021-09-19] MEDS ORDERED: ACETAMINOPHEN IV (For NPO) 1,000 MG in EMPTY BAG 1 BAG IVPB ONE (10:30)
[2021-09-19] MEDS: SENNOSIDES-DOCUSATE SODIUM 1 EACH TAB PO SCH ×2 (14:18→21:37)
[2021-09-19] MEDS: buPROPion 100 MG TAB PO SCH ×2 (14:18→21:37)
[2021-09-19 23:32] VITALS: BP 87/40; PULSE 77; TEMP 98.1
[2021-09-20] MEDS: KETOROLAC 15 MG/ML 1 ML VIAL IVP PRN ×2 (02:31→08:50)
[2021-09-20 07:26] LABS: Basophils % (A) 0 %; Eosinophils # (A) 0.1 k/uL (0-0.7); Eosinophils % (A) 1 %; HCT 34.1 % (34.0-46.0); HGB 11.2 gm/dL (11.4-16.0); Lymphocytes # (A) 1.9 k/uL (1.0-4.8); Lymphocytes % (A) 24 %; MCHC 32.8 g/dL (31.0-37.0); MCV 94.6 fL (80.0-100.0); Mean Platelet Volume 8.6; Monocytes # (A) 0.5 k/uL (0-1.0); Monocytes % (A) 7 %; Neutrophils # (A) 5.1 k/uL (1.3-7.7); Neutrophils % (A) 66 %; Platelet Count 256 k/uL (150-450); RBC 3.61 m/uL (3.80-5.40); RDW 12.6 % (11.5-15.5); WBC 7.8 k/uL (3.8-10.6)
[2021-09-20] MEDS ORDERED: ACETAMINOPHEN TAB 325 MG TAB PO PRN (07:42)
[2021-09-20] MEDS: buPROPion 100 MG TAB PO SCH (08:44)
[2021-09-20] MEDS: SENNOSIDES-DOCUSATE SODIUM 1 EACH TAB PO SCH (08:45)
--- NOTE | 2021-09-20 08:46 | P.DS ---
Providers Date of admission: 09/19/2021 Expected date of discharge: 09/20/21 Attending physician: Vivian Tineo Primary care physician: Karrie Sarkar - Discharge Diagnosis(es) (1) Cervical high risk human papillomavirus (HPV) DNA test positive Current Visit: No Status: Acute Hospital Course: This is a 41-year-old female who underwent a total vaginal hysterectomy on 09/19/2021. Her postoperative course has been uncomplicated. Her pain is been well controlled. She only has complaints of mild lower abdominal cramping. She has urinated without difficulty. She is passing flatus but no bowel movement yet. No bleeding is noted. Vital signs are stable. Abdomen is soft with positive bowel sounds 4. Margarita-pad shows no blood. Impression is status post total vaginal hysterectomy postoperative day #1. Plan is to discharge home today. Routine postoperative instructions are given. She is advised follow-up in the office in 1 week for a postoperative check. She is advised to call the office if she has any further questions or concerns prior to her appointment time. She will be given a prescription for ibuprofen. Procedures: Total vaginal hysterectomy on 09/19/2021 Patient Condition at Discharge: Stable Plan - Discharge Summary Discharge Rx Participant: Yes New Discharge Prescriptions: New Ibuprofen [Motrin] 600 mg PO Q6HR PRN #60 tab PRN Reason: Mild Discomfort Continue buPROPion [Wellbutrin] 100 mg PO BID Betamethasone Dipropionate [Diprolene 0.05% Ointment] 1 applic TOPICAL DAILY Vitamin C/Biotin [Hair, Skin and Nails Chew] 1 tab PO DAILY Discharge Medication List Betamethasone Dipropionate [Diprolene 0.05% Ointment] 1 applic TOPICAL DAILY 09/12/21 [History] Vitamin C/Biotin [Hair, Skin and Nails Chew] 1 tab PO DAILY 09/12/21 [History] buPROPion [Wellbutrin] 100 mg PO BID 09/12/21 [History] Ibuprofen [Motrin] 600 mg PO Q6HR PRN #60 tab 09/20/21 [Rx] Follow up Appointment(s)/Referral(s): Vivian Tineo DO [Doctor of Osteopathic Medicine] - 1 Week Activity/Diet/Wound Care/Special Instructions: Activity as tolerated. No heavy lifting. No intercourse for 6 weeks. May shower but no tub baths for at least 1 week. No driving for approximately 1 week. Diet as tolerated. Discharge Disposition: HOME SELF-CARE
== END 2021-09-20 09:45 | disposition home or self-care (01) ==
LOC: OR 05:48 → 4FBP 08:37 → OR 09-20 09:45
PROVIDERS: ATTEND Obstetrics & Gynecology
DX: Z09 Encounter for follow-up examination after completed treatment for conditions other than malignant neoplasm (principal); N87.0 Mild cervical dysplasia; Z79.899 Other long term (current) drug therapy; R55 Syncope and collapse; K58.9 Irritable bowel syndrome, unspecified; L40.8 Other psoriasis; Z80.0 Family history of malignant neoplasm of digestive organs; F48.8 Other specified nonpsychotic mental disorders; Z98.51 Tubal ligation status; Z98.890 Other specified postprocedural states; F41.9 Anxiety disorder, unspecified; F32.A Depression, unspecified; Z88.6 Allergy status to analgesic agent
CPT/HCPCS: 81025; 86900; 86901; 85025; 86850; 88309; 58262; J2250; J0171; J1200; J1100; J2710; J2765; J0690; J2405; J2001; J2274; J3010; J0131; J1885; J2370; J0330; J2704

== ENCOUNTER → 2021-10-16 | Outpatient (CLI) | payer MEDICAID ==
--- NOTE | 2021-10-16 22:40 | US ---
EXAMINATION TYPE: US pelvic complete DATE OF EXAM: 10/16/2021 COMPARISON: Prior pelvic ultrasound August 10, 2021 CLINICAL HISTORY: N83.291 OTHER OVARIAN CYST, RIGHT SIDE. Partial hysterectomy left ovarian cyst. TECHNIQUE: Transabdominal (TA). Transabdominal sonographic images of the pelvis were acquired. EXAM MEASUREMENTS: Uterus: Surgically absent cm Endometrial Stripe: Surgically absent cm Right Ovary: 2.5 x 1.4x 3.0 cm Left Ovary: 4.5 x 3.2 x 3.0 cm 1. Uterus: Surgically absent 2. Endometrium: Surgically absent 3. Right Ovary: wnl 4. Left Ovary: Cystic area seen measuring 3.1 x 3.7 x 2.5 cm 5. Bilateral Adnexa: wnl 6. Posterior cul-de-sac: wnl Nonvisualized uterus suggests interval hysterectomy. No free fluid. Right ovary is stable and normal in size with scattered peripheral follicles. Left ovary now slightly larger due to benign thin-walled 3.1 cm cyst with slightly lobulated contour. IMPRESSION: Resolved nonsimple cyst or cystic lesion in the right ovary consistent with benign etiolo gy.
== END | disposition home or self-care (01) ==
LOC: RADUSWWP 16:01
PROVIDERS: ATTEND Obstetrics & Gynecology
DX: N83.291 Other ovarian cyst, right side (principal); N83.202 Unspecified ovarian cyst, left side; Z90.711 Acquired absence of uterus with remaining cervical stump
CPT/HCPCS: 76856

== ENCOUNTER → 2022-05-10 | Outpatient (CLI) | payer MEDICAID ==
--- NOTE | 2022-05-13 08:32 | MM ---
Reason for Exam: Screening (asymptomatic). Last mammogram was performed 1 year(s) and 6 month(s) ago. Indicated Problems: Lump or thickening of the left side for 2 Week(s). Patient History: Menarche at age 14. First Full-Term at age 18. Hysterectomy at age 42. 2001, Bilateral Reduction. Last menstrual period: Risk Values: Magali 5 year model risk: 0.4%. NCI Lifetime model risk: 6.6%. Prior Study Comparison: 03/03/2015 Bilateral Screening Mammogram, [facility]. 09/03/2018 Bilateral Diagnostic Mammogram, [facility]. 11/07/2020 Bilateral Screening Mammogram, [facility]. Tissue Density: There are scattered fibroglandular densities. Findings: Analyzed By CAD. There is no suspicious group of microcalcifications or new suspicious mass in either breast. Overall Assessment: Negative, BI-RAD 1 Management: Screening Mammogram of both breasts in 1 year. A clinical breast exam by your physician is recommended on an annual basis and results should be correlated with mammographic findings. Electronically signed and approved by: Tucker Smith M.D. Radiologis
== END | disposition home or self-care (01) ==
LOC: RADMAMWWP 16:14
PROVIDERS: ATTEND Obstetrics & Gynecology
DX: Z12.31 Encounter for screening mammogram for malignant neoplasm of breast (principal)
CPT/HCPCS: 77063; 77067

== ENCOUNTER → 2023-10-02 | Outpatient (CLI) | payer BC ==
--- NOTE | 2023-10-06 11:14 | MM ---
Reason for Exam: Screening (asymptomatic). Last mammogram was performed 1 year(s) and 5 month(s) ago. Patient History: Menarche at age 14. First Full-Term at age 18. Hysterectomy at age 42. Patient used Hormonal Contraceptives for 1 year. 2001, Bilateral Reduction. Risk Values: Magali 5 year model risk: 0.5%. NCI Lifetime model risk: 6.5%. Prior Study Comparison: 09/03/2018 Bilateral Diagnostic Mammogram, [facility]. 11/07/2020 Bilateral Screening Mammogram, [facility]. 05/10/2022 Bilateral MG 3D screening mammo w/cad, [facility]. Tissue Density: There are scattered areas of fibroglandular density. Findings: Analyzed By CAD. Right breast: There is no suspicious group of microcalcifications or new suspicious mass. Left breast: There is no suspicious group of microcalcifications or new suspicious mass. Overall Assessment: Negative, BI-RAD 1 Management: Screening Mammogram of both breasts in [address] [facility] will attempt to contact patient to return for supplemental views and ultrasound if indicated. Patient should continue monthly self-breast exams. A clinical breast exam by your physician is recommended on an annual basis. This exam should not preclude additional follow-up of suspicious palpable abnormalities. Note on Magali scores and lifetime risk: 1. A Magali score greater than 3% is considered moderate risk. If this is the case, consider specialist referral to assess eligibility for a risk reducing agent. 2. If overall lifetime risk for the development of breast cancer is 20% or higher, the patient may qualify for future screening with alternating mammogram and breast MRI. Electronically signed and approved by: Alvaro Christianson DO
== END | disposition home or self-care (01) ==
LOC: RADMAMWWP 13:27
PROVIDERS: ATTEND Family Medicine
DX: Z12.31 Encounter for screening mammogram for malignant neoplasm of breast (principal)
CPT/HCPCS: 77067

== ENCOUNTER → 2024-05-18 | Outpatient (CLI) | payer BC ==
--- NOTE | 2024-05-18 15:26 | USB ---
Reason for Exam: Clinical finding. Patient History: Menarche at age 14. First Full-Term at age 18. Hysterectomy at age 42. Patient used Hormonal Contraceptives for 1 year. 2001, Bilateral Reduction. Risk Values: Magali 5 year model risk: 0.5%. NCI Lifetime model risk: 6.5%. Technique: Method: Targeted. Prior Study Comparison: 11/07/2020 Bilateral Screening Mammogram, [facility]. 05/10/2022 Bilateral MG 3D screening mammo w/cad, [facility]. 10/02/2023 Bilateral MG screening mammo w CAD, [facility]. Findings: The area of palpable concern of the left breast, the axilla of the left breast and the retroareolar of the left breast were scanned. Targeted ultrasound 2:00 left breast at the patient's palpable area including scanning of the subareolar region and axilla. No solid or cystic lesion or axillary lymphadenopathy is seen. Overall Assessment: Probably benign, BI-RAD 3 Management: Diagnostic Mammogram of both breasts in 5 months. Further clinical management of any suspicious palpable areas. Results were given to the patient verbally at the time of exam. [facility], , 05/18/2024 3:23 PM. Electronically signed and approved by: Josef Wilder M.D. Radiologist
== END | disposition home or self-care (01) ==
LOC: RADUSWWP 14:22
PROVIDERS: ATTEND Family Medicine
DX: N63.20 Unspecified lump in the left breast, unspecified quadrant (principal)